=== PATIENT | female | born 1945 | race Two or more races ===

== ENCOUNTER → 2025-03-08 | Outpatient (CLI) | payer MEDICARE, MEDICAID, SELFPAY ==
--- NOTE | 2025-03-08 10:46 | XR_ITS ---
Examination: Bilateral hands, 6 views. Technique: AP, Oblique, Lateral each hand total 6 views Date and time of exam: March 08, 2025 1127 hours INDICATIONS: Bilateral hand pain beginning 1.5 years ago. 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
--- NOTE | 2025-03-08 10:46 | XR_ITS ---
Examination: Bilateral wrists 6 views TECHNIQUE: AP oblique lateral each wrist total 6 views Date and time: March 08, 2025 1132 hours INDICATIONS: Bilateral wrist pain beginning 1.5 years ago. FINDINGS: Severe osteopenia No fracture or dislocation involving either wrist Bilateral moderate narrowing first carpometacarpal joints No erosive arthritis IMPRESSION: Severe osteopenia No erosive arthritis Bilateral moderate narrowing first carpometacarpal joints
== END | disposition home or self-care (01) ==
LOC: CDIM 10:25
PROVIDERS: PCP Family Medicine; Referring Provider Family Medicine; Visit Provider Family Medicine
DX: M85.842 Other specified disorders of bone density and structure, left hand (principal); M85.841 Other specified disorders of bone density and structure, right hand; M19.042 Primary osteoarthritis, left hand; M19.041 Primary osteoarthritis, right hand; M25.832 Other specified joint disorders, left wrist; M25.831 Other specified joint disorders, right wrist
CPT/HCPCS: 73110; 73130